=== PATIENT | male | born 1945 | race Caucasian/White ===

== ENCOUNTER 2024-09-13 13:15 | Inpatient (IN) ==
[2024-09-10 14:46] LABS: Basophils # (Auto) 0.12 K/mcL (0.00-0.30); Basophils % (Auto) 1.7 % (0.0-2.0); Eosinophils # (Auto) 0.33 K/mcL (0.00-0.70); Eosinophils % (Auto) 4.7 % (0.0-7.0); Hemoglobin 15.3 g/dL (13.7-17.5); Lymphocytes # (Auto) 1.31 K/mcL (1.50-4.80); Lymphocytes % (Auto) 18.5 % (15.5-49.0); Mean Cell Volume 90.6 fL (80.0-100.0); Mean Corpuscular HGB Conc 33.3 g/dL (31.0-36.0); Mean Platelet Volume 11.9 fL (8.8-12.5); Monocytes # (Auto) 0.57 K/mcL (0.10-0.90); Monocytes % (Auto) 8.1 % (1.0-12.0); Neutrophils % (Auto) 66.7 % (38.0-78.0); Platelet Count 276 K/mcL (140-440); RBC 5.08 M/mcL (4.63-6.08); Red Cell Distribution Width 13.7 % (11.5-14.5); WBC 7.1 K/mcL (4.5-11.0)
[2024-09-10 14:59] LABS: Blood Urea Nitrogen 15 mg/dL (8-23); Calcium 9.2 mg/dL (8.6-10.4); Carbon Dioxide 26 mmol/L (22-30); Chloride 103 mmol/L (96-108); Glomerular Filtration Rate 80; Glucose 98 mg/dL (70-105); Potassium 4.3 mmol/L (3.3-5.1); Sodium 139 mmol/L (133-145)
[2024-09-10 15:04] LABS: INR 1.2 (0.9-1.1); Prothrombin Time 15.6 sec (11.9-14.5)
[2024-09-13] MEDS ORDERED: fentaNYL 100 MCG/2 ML VIAL ONE (13:20)
[2024-09-13] MEDS ORDERED: KETAMINE 50 MG/ML Syringe IV ONE (13:20)
[2024-09-13] MEDS ORDERED: PROPOFOL 200 MG/20 ML VIAL IV ONE (13:21)
[2024-09-13] MEDS ORDERED: GLYCOPYRROLATE 0.2 MG/ML VIAL IV ONE (13:22)
[2024-09-13] MEDS ORDERED: ONDANSETRON 4 MG/2 ML VIAL ONE (13:22)
[2024-09-13] MEDS ORDERED: SUCCINYLCHOLINE 200 MG/10 ML VIAL IV ONE (13:22)
[2024-09-13] MEDS ORDERED: LIDOCAINE 2% PF 5 ML VIAL ONE (13:22)
[2024-09-13] MEDS ORDERED: DEXAMETHASONE 10 MG/ML VIAL ONE (13:22)
[2024-09-13] MEDS ORDERED: ROCURONIUM 10 MG/ML ML IV ONE (13:22)
[2024-09-13] MEDS ORDERED: SUGAMMADEX SODIUM 200 MG/2 ML VIAL IV ONE (13:45)
[2024-09-13] MEDS ORDERED: HYDROmorphone 0.5 MG/0.5 ML SYRINGE ONE (15:14)
[2024-09-13] MEDS: LIDOCAINE W/EPI 1% 20 ML VIAL IJ ONE (15:15)
[2024-09-13] MEDS ORDERED: morphine 2 MG/ML VIAL IV PRN (15:31)
[2024-09-13] MEDS ORDERED: PHENYLephrine 1 MG/10 ML SYRINGE (ANEST) ONE (15:57)
[2024-09-13] MEDS ORDERED: ePHEDrine 50 MG/5 ML SYRINGE (ANEST) IV ONE (16:14)
[2024-09-13] MEDS: MINERAL OIL 10 ML VIAL TOPICAL ONE (16:41)
[2024-09-13] MEDS ORDERED: METHOCARBAMOL 1,000 MG/10 ML VIAL IV PRN (16:51)
[2024-09-13] MEDS ORDERED: fentaNYL 100 MCG/2 ML VIAL IV PRN (16:51)
[2024-09-13] MEDS ORDERED: HYDROmorphone 0.5 MG/0.5 ML SYRINGE IV PRN (16:51)
[2024-09-13] MEDS ORDERED: LACTATED RINGERS 250 ML IV PRN (16:51)
[2024-09-13] MEDS ORDERED: BENZOCAINE/MENTHOL 1 LOZENGE PO PRN (16:51)
[2024-09-13] MEDS ORDERED: ONDANSETRON 4 MG/2 ML VIAL IV PRN (16:51)
[2024-09-13] MEDS ORDERED: NALOXONE HCL 0.4 MG/ML VIAL IV PRN (16:51)
[2024-09-13] MEDS ORDERED: IPRATROPIUM/ALBUTEROL 3 ML AMPUL.NEB NEB PRN (16:51)
[2024-09-13] MEDS: BACITRACIN TOPICAL OINT 15 GM TUBE TOPICAL ONE (16:54)
[2024-09-13] MEDS: ACETAMINOPHEN 1,000 MG/100 ML BAG IV ONE (17:22)
[2024-09-13] MEDS ORDERED: LACTULOSE 20 GM/30 ML ORAL.SOL PO PRN (18:22)
[2024-09-13] MEDS ORDERED: SENNOSIDES 1 TABLET PO PRN (18:22)
[2024-09-13] MEDS: LACTATED RINGERS 1,000 ML IV SCH ×2 (18:45→20:10)
[2024-09-13] MEDS: HYDROcodone/APAP 5/325MG TABLET PO PRN (20:37)
[2024-09-13] MEDS: MELATONIN 3 MG TABLET PO SCH (20:37)
[2024-09-13] MEDS: DOCUSATE SODIUM 100 MG CAPSULE PO SCH (20:39)
[2024-09-13] MEDS: 0.9 % SODIUM CHLORIDE 10 ML SYRINGE IV SCH (20:39)
[2024-09-13] MEDS: ACETAMINOPHEN 650 MG/65 ML BAG IV PRN (23:33)
[2024-09-14] MEDS: CYANOCOBALAMIN (VITAMIN B-12) 500 MCG TABLET PO SCH (09:40)
[2024-09-14] MEDS: METOPROLOL SUCCINATE 25 MG TAB.XL.24H PO SCH (09:40)
[2024-09-14] MEDS: ZINC SULFATE 50 MG CAPSULE PO SCH (09:40)
[2024-09-14] MEDS: MAGNESIUM OXIDE 400 MG TABLET PO SCH (09:40)
[2024-09-14] MEDS: TAMSULOSIN 0.4 MG CAPSULE PO SCH (09:40)
== END 2024-09-14 10:15 | disposition home or self-care (01) | DRG 596 ==
LOC: SUR 13:15 → ICU 13:15 → EDSTATUS 14:00 → ICU 17:55 → SUR 09-14 10:15
PROVIDERS: ADMIT Otolaryngology; ATTEND Otolaryngology